=== PATIENT | female | born 1975 | race Caucasian/White ===

== ENCOUNTER 2017-02-08 04:34 | Emergency (ER) | payer BC ==
[~2017-02-08] VITALS: Ht 170.2 cm; Wt 97.7 kg
[2017-02-08 04:36] VITALS: BP 134/77; TEMP 98.6
[2017-02-08] MEDS ORDERED: SYNTHROID0.1 MG/TAB PO (04:39)
[2017-02-08] MEDS ORDERED: NOVOLOG 100U100 U/M1 SQ (04:39)
[2017-02-08] MEDS ORDERED: TAMBOCOR 1100 MG/TAB PO (04:39)
[2017-02-08] MEDS ORDERED: ZOCOR 20MG20 MG PO (04:40)
[2017-02-08 05:04] LABS: BASO % 0.5 % (0.0-2.0); EOS # 0.3 (0.0-0.7); EOS % 3.5 % (0-4.0); GRAN # 3.5 (1.4-6.5); GRAN % 47.7 % (42.2-75.2); HEMOGLOBIN 13.9 g/dl (12.5-16.0); LYMPH # 2.9 (1.2-3.4); LYMPH % 38.8 % (20.0-51.0); MEAN CELL VOLUME 82 fl (80.0-100.0); MEAN CORPUSCULAR HEMOGLOBIN 28 pg (27.0-31.0); MEAN CORPUSCULAR HGB CONC 34 g/dl (33.0-37.0); MEAN PLATELET VOLUME 9.8 fl (7.4-10.4); MONO # 0.7 (0.1-0.6); MONO % 9.2 % (1.7-9.3); PLATELET COUNT 194 K/mm3 (130-400); RED BLOOD COUNT 4.98 M/mm3 (4.10-5.30); REDCELL DISTRIBUTION WIDTH-CV 13.2 % (11.5-14.5); WHITE BLOOD COUNT 7.4 K/mm3 (4.8-10.8)
[2017-02-08 05:08] LABS: PH 7 (5-8); SQUAMOUS EPITHELIAL None Seen /hpf; URINE APPEARANCE Clear; URINE BACTERIA None Seen /hpf; URINE BILIRUBIN Negative (NEGATIVE); URINE BLOOD 1+ (NEGATIVE); URINE COLOR Yellow; URINE GLUCOSE Negative (NEGATIVE); URINE KETONE Negative (NEGATIVE); URINE RBC 0-2 /hpf; URINE UROBILINOGEN Negative (NEGATIVE); URINE WBC 0-2 /hpf
[2017-02-08 05:17] LABS: ADJUSTED CALCIUM 9.1 mg/dL (8.4-10.2); ALBUMIN 4.1 gm/dL (3.5-5.0); BILIRUBIN,TOTAL 0.9 mg/dL (0.0-1.0); C-REACTIVE PROTEIN 1.2 mg/dL (0.0-0.9); CALCIUM 9.2 mg/dL (8.4-10.2); CREATININE, serum 0.7 mg/dL (0.52-1.25); POTASSIUM 3.6 mmol/L (3.4-5.0); TOTAL PROTEIN 7.2 gm/dL (6.4-8.2)
[2017-02-08] MEDS ORDERED: FLEXERIL 1010 MG/TAB PO (06:00)
[2017-02-08] MEDS ORDERED: NAPROXEN 3375 MG/TAB PO (06:00)
[2017-02-08 06:12] VITALS: PULSE 77
== END 2017-02-08 06:13 | disposition home or self-care (01) ==
LOC: COL.ER 04:34
PROVIDERS: Emergency Medicine
DX: R10.31 Right lower quadrant pain (principal); E10.9 Type 1 diabetes mellitus without complications; Z79.4 Long term (current) use of insulin
CPT/HCPCS: J1885; J7030